=== PATIENT | female | born 2000 | race Caucasian/White ===

== ENCOUNTER 2020-09-14 13:20 | Inpatient (IN) | payer MEDICAID, OTHER ==
[~2020-09-14] VITALS: Ht 160 cm; Wt 79.4 kg
[2020-09-14] MEDS ORDERED: PNV1TABL76 PO (15:35)
[2020-09-14] MEDS ORDERED: LIDOCAINE HCL 1% 20ML VIAL (Pyxis) INJ INFIL SCH (15:45)
[2020-09-14] MEDS ORDERED: NALOXONE HCL 0.4 MG/ML 1ML VIAL IM PRN (15:45)
[2020-09-14 15:57] LABS: BASOPHILS % 0.8 % (0.0-2.0); EOSINOPHILS % 1.3 % (0.0-5.0); HEMATOCRIT. 33.9 % (36.0-48.0); HEMOGLOBIN. 11.1 g/dL (12.0-16.0); LYMPHOCYTES % 14.3 % (20.0-50.0); MEAN CORPUSCULAR HEMOGLOBIN 27.2 pg (28.0-32.0); MEAN CORPUSCULAR VOLUME 83.4 fL (81.0-99.0); MEAN PLATELET VOLUME 11.2 fl (7.4-10.4); MONOCYTES % 5.8 % (2.0-8.0); NEUTROPHILS % 77.8 % (40.0-76.0); PLATELET 241 x1000/uL (130-400); RED BLOOD CELL COUNT 4.06 mill/uL (4.2-5.4)
[2020-09-14 16:05] LABS: INR 0.9; PARTIAL THROMBOPLASTIN TIME 24.8 sec (23.4-31.0); PROTHROMBIN TIME 9.3 sec (9.6-11.0)
[2020-09-14] MEDS: LACTATED RINGERS 1,000 ML IV SCH ×2 (16:19→22:47)
[2020-09-14 16:24] LABS: *AMPHETAMINES SCREEN URINE NEGATIVE (NEGATIVE); *BARBITURATES SCREEN URINE NEGATIVE (NEGATIVE); *BENZODIAZEPINES SCREEN URINE NEGATIVE (NEGATIVE); *COCAINE SCREEN URINE NEGATIVE (NEGATIVE); METHADONE URINE SCREEN NEGATIVE (NEGATIVE); OPIATES URINE SCREEN NEGATIVE (NEGATIVE)
[2020-09-14 16:25] LABS: CANNABINOID URINE SCREEN NEGATIVE (NEGATIVE); PHENCYCLIDINE URINE SCREEN NEGATIVE (NEGATIVE)
[2020-09-14] MEDS ORDERED: ROPIVACAINE HCL/PF EPIDURAL 200 ML EPI SCH (16:30)
[2020-09-14] MEDS ORDERED: PENICILLIN G POTASSIUM 5 MMU in DEXT 5% WATER 100 ML IV SCH (16:30)
[2020-09-14 16:32] LABS: HEPATITIS B SURFACE ANTIGEN NEGATIVE
[2020-09-14] MEDS: DEXT 5%/LR + PITOCIN 20UNITS/L 1,000 ML IV SCH (16:34)
[2020-09-14] MEDS: PENICILLIN G POTASSIUM 2.5 MMU in DEXTROSE 5% WATER 50 ML IV SCH (22:47)
[2020-09-14] MEDS: BUTORPHANOL TARTRATE 2 MG/ML VIAL IV PRN (23:19)
[2020-09-15] MEDS: PENICILLIN G POTASSIUM 2.5 MMU in DEXTROSE 5% WATER 50 ML IV SCH ×6 (02:31→22:28)
[2020-09-15] MEDS: BUTORPHANOL TARTRATE 2 MG/ML VIAL IV PRN (04:47)
[2020-09-15] MEDS: LACTATED RINGERS 1,000 ML IV SCH ×3 (07:01→16:00)
[2020-09-15] MEDS: DEXT 5%/LR + PITOCIN 20UNITS/L 1,000 ML IV SCH (14:28)
[2020-09-15] MEDS ORDERED: ROPIVACAINE HCL/PF EPIDURAL 200 ML EPI SCH (15:30)
[2020-09-15] MEDS ORDERED: FENTANYL CITRATE/PF 50MCG/ML 2ML VIAL ONE (15:57)
[2020-09-15] MEDS ORDERED: BUPIVACAINE HCL/PF 0.25% (2.5MG/ML) 10ML ONE (15:57)
[2020-09-15 19:38] LABS: BASOPHILS % 0.2 % (0.0-2.0); EOSINOPHILS % 0.2 % (0.0-5.0); HEMATOCRIT. 33.6 % (36.0-48.0); HEMOGLOBIN. 10.8 g/dL (12.0-16.0); LYMPHOCYTES % 9.6 % (20.0-50.0); MEAN CORPUSCULAR HEMOGLOBIN 26.9 pg (28.0-32.0); MEAN CORPUSCULAR VOLUME 83.7 fL (81.0-99.0); MEAN PLATELET VOLUME 10.4 fl (7.4-10.4); MONOCYTES % 4.8 % (2.0-8.0); NEUTROPHILS % 85.2 % (40.0-76.0); PLATELET 231 x1000/uL (130-400); RED BLOOD CELL COUNT 4.02 mill/uL (4.2-5.4)
[2020-09-15 19:49] LABS: CHLORIDE 109 mEq/L (98-107); D-DIMER 3.52 mg/L FEU (<0.50); INR 0.9; PROTHROMBIN TIME 9.6 sec (9.6-11.0)
[2020-09-16] VITALS (7 sets, daily range): BP systolic 103–125; BP diastolic 51–82
[2020-09-16] MEDS: DEXT 5%/LR + PITOCIN 20UNITS/L 1,000 ML IV SCH (00:39)
[2020-09-16] MEDS ORDERED: DIPHENHYDRAMINE 25MG CAPSULE PO PRN (01:15)
[2020-09-16] MEDS ORDERED: BENZOCAINE/LANOLIN/ALOE VERA SPRAY TOP PRN (01:15)
[2020-09-16] MEDS ORDERED: IBUPROFEN 400MG TABLET PO PRN (01:15)
[2020-09-16] MEDS ORDERED: HEMORRHOIDAL SUPP PR PRN (01:15)
[2020-09-16] MEDS ORDERED: DEXT 5%/LR + PITOCIN 20UNITS/L 1,000 ML IV SCH (01:15)
[2020-09-16] MEDS ORDERED: GLYCERIN/WITCH HAZEL LEAF MEDICATED PAD TOP PRN (01:15)
[2020-09-16] MEDS ORDERED: RHO(D) IMMUNE GLOBULIN 300 MCG/SYR IM PRN (01:15)
[2020-09-16] MEDS ORDERED: BISACODYL 10MG SUPP PR PRN (01:15)
[2020-09-16] MEDS ORDERED: LANOLIN OINT 7GM TUBE TOP PRN (01:15)
[2020-09-16] MEDS ORDERED: ACETAMINOPHEN WITH CODEINE 300/30MG TABLET PO PRN (01:15)
[2020-09-16] MEDS: IBUPROFEN 800MG TABLET PO PRN ×2 (02:37→08:52)
[2020-09-16] MEDS: PRENATAL VIT/FE FUMARATE/FA TABLET PO SCH (08:52)
[2020-09-16] MEDS: MAGNESIUM/ALUMINUM HYDROXIDE/SIMETHICONE 30ML UDC PO SCH ×4 (08:53→21:13)
[2020-09-16] MEDS: SIMETHICONE 80MG TABLET CHEW PO SCH ×4 (08:53→21:15)
[2020-09-16] MEDS ORDERED: OXYTOCIN 10 UNITS/ML 1ML ONE (12:00)
[2020-09-16] MEDS ORDERED: CARBOPROST TROMETHAMINE 250 MCG/ML AMPUL IM ONE (12:00)
[2020-09-16] MEDS ORDERED: MISOPROSTOL 200MCG TABLET ONE (12:00)
[2020-09-16] MEDS ORDERED: DOCUSATE SODIUM 100MG CAPSULE PO SCH (21:00)
[2020-09-17 06:00] VITALS: BP 105/63
[2020-09-17] MEDS ORDERED: FERR325T23 PO (07:02)
[2020-09-17] MEDS ORDERED: IBUP-2030 PO (07:02)
[2020-09-17] MEDS: MAGNESIUM/ALUMINUM HYDROXIDE/SIMETHICONE 30ML UDC PO SCH (07:30)
[2020-09-17] MEDS ORDERED: FERROUS SULFATE 325MG TABLET PO SCH (07:30)
[2020-09-17 07:36] VITALS: BP 104/63
[2020-09-17] MEDS: SIMETHICONE 80MG TABLET CHEW PO SCH (08:00)
[2020-09-17] MEDS: PRENATAL VIT/FE FUMARATE/FA TABLET PO SCH (09:00)
[2020-09-17 11:33] LABS: BASOPHILS % 0.7 % (0.0-2.0); LYMPHOCYTES % 22.8 % (20.0-50.0); MEAN CORPUSCULAR VOLUME 84.6 fL (81.0-99.0); MEAN PLATELET VOLUME 10.3 fl (7.4-10.4); NEUTROPHILS % 67.5 % (40.0-76.0); PLATELET 203 x1000/uL (130-400); RED BLOOD CELL COUNT 2.33 mill/uL (4.2-5.4)
[2020-09-17 11:37] LABS: HEMOGLOBIN. 6.3 g/dL (12.0-16.0)
[2020-09-17 11:38] LABS: HEMATOCRIT. 19.7 % (36.0-48.0)
== END 2020-09-17 18:00 | disposition home or self-care (01) | DRG 560 ==
LOC: OBSVTOIN 13:20 → 8 EST LDRP 13:20 → 8EST 09-16 02:00
PROVIDERS: ADMIT Obstetrics & Gynecology; ATTEND Obstetrics & Gynecology
PROC: 10E0XZZ Delivery of Products of Conception, External Approach (ICD-10-PCS; principal; 2020-09-16)
PROC: 3E0R3BZ Introduction of Anesthetic Agent into Spinal Canal, Percutaneous Approach (ICD-10-PCS; 2020-09-16)
PROC: 00HU33Z Insertion of Infusion Device into Spinal Canal, Percutaneous Approach (ICD-10-PCS; 2020-09-16)
PROC: 0KQM0ZZ Repair Perineum Muscle, Open Approach (ICD-10-PCS; 2020-09-16)
DX: O48.0 Post-term pregnancy (principal); O70.1 Second degree perineal laceration during delivery; O72.1 Other immediate postpartum hemorrhage; O90.81 Anemia of the puerperium; Z37.0 Single live birth; Z3A.40 40 weeks gestation of pregnancy
CPT/HCPCS: 36415; 80053; 80305; 84550; 85025; 85379; 85384; 86592; 86703; 86762; 86850; 86900; 87340; G0378; J0595; J2540; J2590; J2795; J3010; J3490; J7060; J7120; A4315